=== PATIENT | female | born 1935 | race Native Hawaiian/Other Pacific Islander ===

== ENCOUNTER 2018-05-14 13:58 | Outpatient (CLI) | payer OTHER | END 2018-05-14 21:47 | disposition home or self-care (01) | LOC: LAB 13:58 | DX: R30.0 Dysuria (principal) | CPT/HCPCS: 81000 ==

== ENCOUNTER 2018-05-28 13:23 | Outpatient (CLI) | payer OTHER | END 2018-05-28 22:34 | disposition home or self-care (01) | LOC: LAB 13:23 | DX: R30.0 Dysuria (principal) | CPT/HCPCS: 81000; 87086; 87088 ==